=== PATIENT | female | born 1970 | race African-American/Black ===

== ENCOUNTER → 2019-12-07 | Day surgery (SDC) | payer BC ==
[2019-12-06 14:33] VITALS: BMI 29.2
[~2019-12-07] MED LIST: PROPOFOL 20 ML ONE
[2019-12-07 14:11] VITALS: TEMP 98
[2019-12-07 14:14] VITALS: BP 111/69; PULSE 76
--- NOTE | 2019-12-11 15:01 | PATH ---
Surgical Pathology Report Patient Name: TONY THOMPSON [facility]. Rec. #: [id number] /Age/Gender: 1970 (Age: 48) / F Account: [id number] Location: [facility] AMBULATORY Taken: 12/07/2019 Received: 12/07/2019 Reported: 12/11/2019 Physicians: Kaley Diaz M.D. Specimen(s) Received A: SECOND PORTION DUODENUM B: ANTRUM C: BX GE JUNCTION Clinical History Black stool Postoperative diagnosis: Irregular Z line, gastritis, rule out Kohli's Final Diagnosis A. DUODENUM, SECOND PORTION, BIOPSY: DUODENAL MUCOSA WITH NO PATHOLOGIC CHANGES. NO HISTOLOGIC EVIDENCE OF GLUTEN SENSITIVE ENTEROPATHY (CELIAC SPRUE) IDENTIFIED. B. STOMACH, ANTRUM, BIOPSY: MILD CHRONIC GASTRITIS. IMMUNOSTAIN FOR H. PYLORI IS NEGATIVE. C. GE JUNCTION, BIOPSY: GASTRIC TYPE MUCOSA WITH MILD CHRONIC INFLAMMATION. NO INTESTINAL METAPLASIA IDENTIFIED (NO KOHLI'S IDENTIFIED). Electronically Signed Tommy Nunes M.D. Gross Description A. Received in formalin, labeled "biopsy second portion of duodenum" is a berg, irregular portion of soft tissue measuring 0.3 cm. in greatest dimension. The specimen is submitted in toto in one cassette. B. Received in formalin, labeled "biopsy gastric antrum" is a berg, irregular portion of soft tissue measuring 0.4 cm. in greatest dimension. The specimen is submitted in toto in one cassette. C. Received in formalin, labeled "biopsy GE junction" is a berg, irregular portion of soft tissue measuring 0.3 cm. in greatest dimension. The specimen is submitted in toto in one cassette. /12/10/2019 saudi12/10/2019
== END | disposition home or self-care (01) ==
LOC: FASU 11:28
PROVIDERS: ATTEND Internal Medicine Gastroenterology
PROC: 0DB68ZX Excision of Stomach, Via Natural or Artificial Opening Endoscopic, Diagnostic (ICD-10-PCS; 2019-12-07)
PROC: 0DB48ZX Excision of Esophagogastric Junction, Via Natural or Artificial Opening Endoscopic, Diagnostic (ICD-10-PCS; 2019-12-07)
PROC: 0DB98ZX Excision of Duodenum, Via Natural or Artificial Opening Endoscopic, Diagnostic (ICD-10-PCS; principal; 2019-12-07 12:38)
DX: K92.1 Melena (principal); K29.50 Unspecified chronic gastritis without bleeding
CPT/HCPCS: 84703; 88305-TC; 88342-TC

== ENCOUNTER 2021-02-20 09:18 | Day surgery (SDC) | payer BC ==
[2021-02-13 13:51] VITALS: BMI 30.9
[2021-02-20 11:09] VITALS: TEMP 97.4
[2021-02-20] MEDS ORDERED: LIDOCAINE HCL/PF 2% SDV 5ML VIAL ONE (12:02)
[2021-02-20 12:39] VITALS: BP 127/70; PULSE 75
== END 2021-02-20 12:15 | disposition home or self-care (01) ==
LOC: FASU-ENDO 09:18
PROVIDERS: ATTEND Internal Medicine Gastroenterology
PROC: 0DBN8ZX Excision of Sigmoid Colon, Via Natural or Artificial Opening Endoscopic, Diagnostic (ICD-10-PCS; principal; 2021-02-20 10:25)
DX: Z12.11 Encounter for screening for malignant neoplasm of colon (principal); K51.90 Ulcerative colitis, unspecified, without complications; K63.5 Polyp of colon; K64.1 Second degree hemorrhoids; K64.8 Other hemorrhoids
CPT/HCPCS: 84703